=== PATIENT | male | born 1980 | race African-American/Black ===

== ENCOUNTER 2017-07-23 10:25 | Emergency (ER) | payer MEDICAID ==
[~2017-07-23] VITALS: Ht 182.9 cm; Wt 70.4 kg
[2017-07-23] MEDS ORDERED: KETOROLAC 60MG/2ML VIAL IM ONE (13:00)
[2017-07-23] MEDS ORDERED: BACITRACIN ZINC OINT UDPKT TOP ONE (13:15)
[2017-07-23] MEDS ORDERED: LIDOCAINE HCL 1% 20ML VIAL (Pyxis) INJ MC ONE (13:15)
[2017-07-23] MEDS ORDERED: TETANUS, DIPHTHERIA, PERTUSSIS VAC/PF 0.5ML (>7YR OLD) IM ONE (13:15)
[2017-07-23 14:26] VITALS: BP 100/72
== END 2017-07-23 14:29 | disposition home or self-care (01) ==
LOC: ER 10:46
DX: S01.511A Laceration without foreign body of lip, initial encounter (principal); S09.90XA Unspecified injury of head, initial encounter; F12.10 Cannabis abuse, uncomplicated; Y08.89XA Assault by other specified means, initial encounter; Y93.89 Activity, other specified; Y92.89 Other specified places as the place of occurrence of the external cause; Y99.8 Other external cause status
CPT/HCPCS: 12011; 96372; 99283; J1885; J3490; X7700; Z7610; 90715

== ENCOUNTER 2017-07-26 16:16 | Emergency (ER) | payer MEDICAID ==
[~2017-07-26] VITALS: Ht 182.9 cm; Wt 71.0 kg
[2017-07-26] MEDS ORDERED: METOCLOPRAMIDE HCL 10MG TABLET PO ONE (17:00)
[2017-07-26] MEDS ORDERED: KETOROLAC 60MG/2ML VIAL IM ONE (17:00)
[2017-07-26] MEDS ORDERED: BACITRACIN ZINC OINT UDPKT TOP ONE (17:00)
[2017-07-26 17:19] VITALS: BP 114/77
== END 2017-07-26 19:18 | disposition home or self-care (01) ==
LOC: ER 16:30
DX: Z48.00 Encounter for change or removal of nonsurgical wound dressing (principal); R51 Headache; F17.210 Nicotine dependence, cigarettes, uncomplicated
CPT/HCPCS: 70450; 72125; 96372; 99284; J1885; J8597

== ENCOUNTER 2017-08-02 17:00 | Emergency (ER) | payer MEDICAID, OTHER ==
[~2017-08-02] VITALS: Ht 182.9 cm; Wt 70.0 kg
[2017-08-02 17:02] VITALS: BP 142/38
== END 2017-08-02 20:00 | disposition left against medical advice (07) ==
LOC: ER 17:00
DX: Z48.02 Encounter for removal of sutures (principal); Z53.21 Procedure and treatment not carried out due to patient leaving prior to being seen by health care provider

== ENCOUNTER 2022-06-29 13:49 | Emergency (ER) | payer OTHER ==
[~2022-06-29] VITALS: Ht 182.9 cm; Wt 66.0 kg
[2022-06-29 13:58] VITALS: BP 153/81
== END 2022-06-29 18:42 | disposition left against medical advice (07) ==
LOC: ER 13:49
DX: Z53.21 Procedure and treatment not carried out due to patient leaving prior to being seen by health care provider (principal)